=== PATIENT | female | born 1960 | race Caucasian/White ===

== ENCOUNTER 2017-09-03 18:44 | Emergency (ER) | payer BC ==
[2017-09-03 18:51] VITALS: BP 154/81; PULSE 65; TEMP 98; BMI 36.6
[2017-09-03] MEDS ORDERED: IBUPROFEN 600 MG TABLET (FP) PO ONE ×2 (18:59→19:00)
--- NOTE | 2017-09-03 19:19 | PDOC ---
History of Present Illness - General Chief Complaint: Pain Stated Complaint: LEG PAIN Time Seen by Provider: 09/03/17 18:54 History Source: Patient Exam Limitations: No Limitations - History of Present Illness Initial Comments: CHIEF COMPLAINT: 57 y/o afebrile female with no significant PMH c/o right knee pain. HISTORY OF PRESENT ILLNESS: The patient states her knee started hurting about 3 weeks ago. She admits she stands at lot at her job. She states today, when pushing off of her right foot to get into her truck, she felt a pop and a lot of pain in the back of her right knee. She denies instability. Past History - Past Medical History Allergies/Adverse Reactions: Allergies Allergy/AdvReac Type Severity Reaction Status Date / Time No Known Drug Allergies Allergy Verified 09/03/17 18:51 Home Medications: Ambulatory Orders Levothyroxine [Synthroid -] 100 mcg PO DAILY 09/03/17 Anemia: No Asthma: No Cancer: No Cardiac Disorders: No CVA: No COPD: No CHF: No Dementia: No Diabetes: No GI Disorders: No Disorders: No HTN: No Hypercholesterolemia: No Liver Disease: No Seizures: No Thyroid Disease: Yes (HYPOTHYROID BUT NOT TAKING MEDICINE) Other medical history: detatched retna left eye - Surgical History Abdominal Surgery: No Appendectomy: No Cardiac Surgery: No Cholecystectomy: No Lung Surgery: No Neurologic Surgery: No Orthopedic Surgery: No - Suicide/Smoking/Psychosocial Hx Smoking History: Never smoked Have you smoked in the past 12 months: No Hx Alcohol Use: No Drug/Substance Use Hx: No Substance Use Type: Alcohol Hx Substance Use Treatment: No Review of Systems - Review of Systems Able to Perform ROS?: Yes Constitutional: No: Symptoms Reported Musculoskeletal: Yes: Joint Pain (right knee) Neurological: No: Symptoms reported *Physical Exam - Vital Signs Last Vital Signs Temp Pulse Resp BP Pulse Ox 98 F 65 18 154/81 99 09/03/17 18:47 09/03/17 18:47 09/03/17 18:47 09/03/17 18:47 09/03/17 18:47 - Physical Exam Comments: Well appearing, obese female, in wheelchair. General Appearance: Yes: Nourished, Appropriately Dressed. No: Apparent Distress Extremity: positive: Normal Range of Motion, Other (Pain with Joni's test in posterior right knee. Negative lachmann's test). negative: Tender, Swelling , Calf Tenderness, Erythema Neurologic: positive: fountain clerk II-XII NML intact, Fully Oriented, Alert, Motor Strength 07/02 ED Treatment Course - RADIOLOGY Radiology Studies Ordered: Category Date Time Status KNEE 2 POS-RIGHT [RAD] Stat Radiology 09/03/17 18:55 Ordered - Medications Given in the ED: ED Medications Discontinued Medications Generic Name Dose Route Start Last Admin Trade Name Dev PRN Reason Stop Dose Admin Ibuprofen 600 mg 09/03/17 18:59 09/03/17 19:01 Motrin - PO 09/03/17 19:00 600 mg ONCE ONE Administration Medical Decision Making - Medical Decision Making A/P: 57 y/o female with right knee pain. Possible soft tissue damage. Plan is as follows: 1. xray right knee 2. PO ibuprofen Xray right knee IMPRESSION: (wet read) No acute pathology. Suspect either meniscus tear or hamstring tear. Will put in LORNA bandage, immobilizer and crutches. Suggested 800mg of over the counter ibuprofen every 8 hours with food for pain/swelling, RICE instructions and f/u with Ortho within 1 week. THe patient verbalizes understanding of all instructions, has no further questions and is awaiting discharge. *DC/Admit/Observation/Transfer Diagnosis at time of Disposition: Knee pain, right Qualifiers: Chronicity: acute Qualified Code(s): M25.561 - Pain in right knee Soft tissue injury of right knee Qualifiers: Encounter type: initial encounter Qualified Code(s): S89.91XA - Unspecified injury of right lower leg, initial encounter - Discharge Dispostion Disposition: HOME Condition at time of disposition: Good - Referrals Referrals: See Melendrez MD [Staff Physician] - - Patient Instructions Printed Discharge Instructions: DI for Knee Pain, How to Use a Knee Immobilizer , How To Perform RICE (Rest, Ice, Compress, Elevate) Additional Instructions: Discharge Instructions: -The xray of your knee was normal -You may have torn your hamstring or meniscus -Please use the immobilizer and crutches until you follow up with Dr. Melendrez, or an Orthopedic doctor of your choice -Take 600mg of over the counter Ibuprofen every 6 hours with food OR 800mg every 8 hours. -Follow RICE instructions -Follow up with Dr. Melendrez or an Orthopedic doctor of your choice as soon as possible. - Post Discharge Activity Forms/Work/School Notes: Back to Work
== END 2017-09-03 19:48 | disposition home or self-care (01) ==
LOC: JERFT 18:44
PROC: 2W3QXYZ Immobilization of Right Lower Leg using Other Device (ICD-10-PCS; principal; 2017-09-03)
DX: S89.81XA Other specified injuries of right lower leg, initial encounter (principal); V88.8XXA Person injured in other specified noncollision transport accidents involving motor vehicle, nontraffic, initial encounter; Y92.488 Other paved roadways as the place of occurrence of the external cause; Y93.89 Activity, other specified; Y99.8 Other external cause status
CPT/HCPCS: 73560-TC-RT-FY; 99282-25

== ENCOUNTER 2017-09-22 00:32 | Emergency (ER) | payer BC ==
[2017-09-22 00:51] VITALS: BP 147/77; PULSE 70; TEMP 98.2; BMI 36.6
--- NOTE | 2017-09-22 01:01 | PDOC ---
History of Present Illness - General Chief Complaint: Injury Stated Complaint: LEFT FINGER LACERATION Time Seen by Provider: 09/22/17 00:50 History Source: Patient Exam Limitations: No Limitations - History of Present Illness Initial Comments: 09/22/17 00:56 This 49-year-old woman who denies significant past medical history presents emergency Department with laceration to third digit of her left hand sustained with scissors. Patient states she was scraping wax out of a jar with a pair of scissors when the scissors slipped striking her in the third digit of the left hand. 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 Past History - Past Medical History Allergies/Adverse Reactions: Allergies Allergy/AdvReac Type Severity Reaction Status Date / Time No Known Drug Allergies Allergy Verified 09/22/17 00:39 Home Medications: Ambulatory Orders Levothyroxine [Synthroid -] 100 mcg PO DAILY 09/03/17 Anemia: No Asthma: No Cancer: No Cardiac Disorders: No CVA: No COPD: No CHF: No Dementia: No Diabetes: No GI Disorders: No Disorders: No HTN: No Hypercholesterolemia: No Liver Disease: No Seizures: No Thyroid Disease: Yes (HYPOTHYROID BUT NOT TAKING MEDICINE) - Surgical History Abdominal Surgery: No Appendectomy: No Cardiac Surgery: No Cholecystectomy: No Lung Surgery: No Neurologic Surgery: No Orthopedic Surgery: No - Suicide/Smoking/Psychosocial Hx Smoking History: Never smoked Have you smoked in the past 12 months: No Hx Alcohol Use: No Drug/Substance Use Hx: No Substance Use Type: Alcohol Hx Substance Use Treatment: No Review of Systems - Review of Systems Able to Perform ROS?: Yes Is the patient limited Mongolian proficient: Yes Integumentary: Yes: See HPI All Other Systems: Reviewed and Negative *Physical Exam - Vital Signs Last Vital Signs Temp Pulse Resp BP Pulse Ox 98.2 F 70 18 147/77 98 09/22/17 00:36 09/22/17 00:36 09/22/17 00:36 09/22/17 00:36 09/22/17 00:36 - Physical Exam General Appearance: Yes: Appropriately Dressed. No: Apparent Distress Integumentary: positive: Other (3 cm irregular superficial laceration to the palmar surface of the third digit on the left hand.) Procedures - Consent Consent obtained: Verbal, From Patient - Laceration/Wound Repair Left Volar Hand 3rd digit Wound Length: 2.6 to 5.0 cm Wound Explored: clean Wound's Depth, Shape: superficial Irrigated w/ Saline: Yes Betadine Prep: Yes Anesthesia: 1% Lidocaine Amount of Anesthetic (ccs): 3 Wound Debrided: minimal Wound Repaired With: Sutures Suture Size/Type: 5:0, nylon Number of Sutures: 5 Layer Closure: Yes Deep Layer Suture Size/Type: 5:0, chromic Number of Deep Layer Sutures: 1 Sterile Dressing Applied: Yes Splint Applied: No Sling Applied: No Progress: 09/22/17 01:49 patient tolerated well Medical Decision Making - Medical Decision Making 09/22/17 00:58 A/P: 57-year-old woman with laceration to third digit of left hand Approximately 3 cm irregular superficial laceration to the palmar surface of the third digit of the left hand Able to flex and extend fingers against resistance without difficulty Numbness present to the radial side of the digit Tetanus is up to date Laceration repair-see procedure note for details Discharge home *DC/Admit/Observation/Transfer Diagnosis at time of Disposition: Laceration - Discharge Dispostion Disposition: HOME Condition at time of disposition: Fair Decision to Admit order: No - Referrals - Patient Instructions Additional Instructions: Rest, elevate, avoid strenuous activity or heavy lifting until sutures are removed Leave dressing on for the next 24 hours, Then may remove dressing gently and wash area with soap and water. Reapply bacitracin ointment and dressing daily for the next 5 days On day #6 keep the wound protected and cover as needed until sutures are removed allowing wound to start to dry May use Tylenol or Motrin for pain relief Suture removal in : 7-10 Days - Post Discharge Activity Forms/Work/School Notes: Back to Work
== END 2017-09-22 01:50 | disposition home or self-care (01) ==
LOC: JER 00:32
PROC: 0HQGXZZ Repair Left Hand Skin, External Approach (ICD-10-PCS; principal; 2017-09-22)
DX: S61.213A Laceration without foreign body of left middle finger without damage to nail, initial encounter (principal); W27.2XXA Contact with scissors, initial encounter; Y93.89 Activity, other specified; Y92.018 Other place in single-family (private) house as the place of occurrence of the external cause
CPT/HCPCS: 99283-25